=== PATIENT | male | born 1990 | race Two or more races ===

== ENCOUNTER 2018-12-22 | Inpatient (IN) | payer OTHER ==
[~2018-12-22] VITALS: Ht 152.4 cm; Wt 149.2 kg
[2018-12-23] VITALS (26 sets, daily range): BP systolic 90–135; BP diastolic 40–81
--- NOTE | 2018-12-23 05:30 | NUR ---
TELE MS RD SCIENTIST INITIAL NOTES GOT A DIRECT ADMIT FROM [facility] .DX OF RENAL FAILURE. PT IS ALERT ORIENTED , AMBULATORY, PLEASANT AND ABLE TO PROVIDE INFORMATION ABOUT HIMSELF.DENIES ANY PAIN OR ANY DISCOMFORT. NO SOB NOTED. SKIN WARM AND DRY TO TOUCH. ORIENTED HOW TO USED THE CALL LIGHT SYSTEM. TELE MONITOR APPLIED AND EXPLAINED THE PATIENT THE PURPOSE OF IT AND PT UNDERSTOOD WELL. PLACE CALL LIGHT AT REACH. WILL ENDORSE TO AM NURSE FOR CONTINUITY OF CARE.
[2018-12-23] MEDS ORDERED: MAG HYDROX/AL HYDROX/SIMETH 30 ML UDC PO PRN (06:30)
[2018-12-23] MEDS ORDERED: HYDROCODONE/APAP 5/325MG 1 EACH TABLET PO PRN (06:30)
[2018-12-23] MEDS ORDERED: MAGNESIUM HYDROXIDE 30 ML UDC PO PRN (06:30)
[2018-12-23] MEDS ORDERED: ACETAMINOPHEN 325 MG TABLET PO PRN (06:30)
[2018-12-23] MEDS ORDERED: ONDANSETRON HCL/PF 4 MG/2 ML VIAL IVP PRN (06:30)
[2018-12-23] MEDS ORDERED: Z GUARD REMEDY 2 OZ OINT TP PRN (06:30)
[2018-12-23] MEDS ORDERED: BUDE10.2 INH (06:39)
[2018-12-23] MEDS ORDERED: METF-442 PO (06:47)
[2018-12-23] MEDS ORDERED: CARV3.122 PO (06:47)
[2018-12-23] MEDS ORDERED: ALBU0.633 IH (06:47)
[2018-12-23] MEDS ORDERED: ATOR20TA PO (06:47)
[2018-12-23] MEDS ORDERED: LOSA50TA39 PO (06:47)
[2018-12-23] MEDS ORDERED: FURO20TA4 PO (06:47)
--- NOTE | 2018-12-23 07:02 | NUR ---
CROSS TIE TURNER NOTES PATIENT IN BED ALERT ORIENTED X 3. NO ACUTE DISTRESS NOTED. BREATHING UNLABORED. NO ACUTE DISTRESS NOTED. IV ACCESS PATENT AND INTACT, NO REDNESS OR SWELLING NOTED. SAFETY MEASURES IN PLACE. CALL LIGHT WITHIN REACH. WILL CONTINUE TO MONITOR ACCORDINGLY.
[2018-12-23 08:13] LABS: BASOPHILS # (AUTO) 0.1 /CMM (0.0-0.2); BASOPHILS % (AUTO) 0.4 % (0.0-2.0); EOSINOPHILS % (AUTO) 1.5 % (0.0-6.0); HEMATOCRIT 30 % (39-51); HEMOGLOBIN 9.8 g/dL (13.5-17.5); LYMPHOCYTES # (AUTO) 1.5 /CMM (0.8-4.8); LYMPHOCYTES % (AUTO) 12.1 % (20.0-44.0); MEAN CORPUSCULAR HGB CONC 33 g/dl (31.0-36.0); MEAN CORPUSCULAR VOLUME 99 fL (80-96); MONOCYTES # (AUTO) 1.3 /CMM (0.1-1.30); MONOCYTES % (AUTO) 10.2 % (2.0-12.0); NEUTROPHILS # (AUTO) 9.7 /CMM (1.8-8.9); NEUTROPHILS % (AUTO) 75.8 % (43.0-81.0); PLATELET COUNT (AUTO) 378 /CMM (150-450); RED BLOOD CELL COUNT(AUTO) 3.04 MIL/uL (4.5-6.0); WHITE BLOOD COUNT (AUTO) 12.8 K/uL (4.3-11.0)
[2018-12-23 08:27] LABS: ALBUMIN 3.2 g/dL (3.4-5.0); BILIRUBIN,TOTAL 0.2 mg/dL (0.2-1.0); CREATININE 3.7 mg/dL (0.6-1.3); MAGNESIUM 2.1 mg/dL (1.8-2.4)
[2018-12-23 08:40] LABS: POTASSIUM 7.2 mmol/L (3.5-5.1)
[2018-12-23] MEDS ORDERED: DEXTROSE 50%-WATER 50 ML DISP.SYRIN IVP ONE (09:00)
[2018-12-23] MEDS ORDERED: SODIUM POLYSTYRENE SULFONATE 15 G/60 ML BOTTLE PO ONE ×2 (09:00→19:00)
[2018-12-23] MEDS ORDERED: INSULIN REGULAR, HUMAN 100 UNIT/ML 3 ML VIAL IV ONE (09:00)
[2018-12-23 09:01] LABS: THYROID STIMULATING HORMONE 1.584 uIU/mL (0.358-3.74)
[2018-12-23] MEDS ORDERED: IV NS 0.9% 1,000 ML IV PRN (09:46)
[2018-12-23] MEDS: CARVEDILOL 3.125 MG TABLET PO SCH ×2 (10:00→16:20)
[2018-12-23] MEDS ORDERED: ALBUTEROL FS 2.5 MG/3 ML VIAL.NEB NEB PRN (10:00)
[2018-12-23 12:03] LABS: ABG BASE EXCESS -13.8 mmol/L; ABG OXYGEN SATURATION 96.3 % (92.0-98.5); ABG PCO2 32.9 mmHg (35.0-45.0); ABG PH 7.212 (7.350-7.450); ABG PO2 94.1 mmHg (75.0-100.0); AaDO2 16.2 mmHg; COHb 0.3 % (0.5-1.5); SITE, ABG Left Radial; VENT MODE, BG ROOM AIR
--- NOTE | 2018-12-23 12:45 | NUR ---
RN NOTES ABG RESULTED RELAYED TO DR ROCHE WITH ORDERS TO TRANSFER TO ICU AND REPEAT ABG AT 1600, FOLLOW WITH EXERCISE SPECIALIST DIRECTOR RISK WITH RESULT. REPORT GIVEN TO TRISTEN LINDA AT BED. TRANSFER PATIENT TO ICU ROOM 254 IN STABLE CONDITION ,ALERT ORIENTED X 4. TRANSFER VIA ACLS PROTOCOL. ALL BELONGINGS BROUGHT WITH THE PATIEN.
--- NOTE | 2018-12-23 12:45 | NUR ---
received patient from saul roman per dr roberson order. patient admitted for abnormal labs; elevated potassium 7.2 in which he was given insulin/dexrose ivp and one time dose of 30g kayexalate with out bm at this time. patient bp stable. tele snr with bbb; pending ekg. room air stable 96% without sob, difficulty breathing. patient denies pain. patient abg ph 7.212. a/ox4. piv c/d/i/p with ivf per md order. vss per report dr roberson requests abg at 1600; pending updated bmp at 1300 and no other orders at this time.
[2018-12-23] MEDS ORDERED: ALBUTEROL FS 2.5 MG/0.5 ML VIAL.NEB NEB PRN (13:30)
[2018-12-23 13:57] LABS: CREATININE 3.4 mg/dL (0.6-1.3)
--- NOTE | 2018-12-23 14:00 | NUR ---
SPOKE TO DR. ROCHE REGARDING PATIENT TRANSFER. CLARIFICATION OF ORDERS MADE REPEAT ABG AT 1600-AND CALL MD IF PH < 7.25. NOCTURNAL BIPAP WITH SETTINGS ORDERED. NO BICARB AT THIS TIME PER MD. PATIENT REMAINS AWAKE, ALERT AND AMBULATORY ON RA.
[2018-12-23 14:03] LABS: POTASSIUM 7.4 mmol/L (3.5-5.1)
--- NOTE | 2018-12-23 15:15 | NUR ---
dr persaud at bedside for consult
[2018-12-23] MEDS ORDERED: Sodium Bicarbonate 100 MEQ in IV D5/0.45 NACL 1,000 ML IV PRN (15:30)
[2018-12-23] MEDS ORDERED: FUROSEMIDE 40 MG/4 ML VIAL IV ONE (15:38)
--- NOTE | 2018-12-23 15:43 | NUR ---
ekg taken. tennille at bedside notified of ekg and dr persaud aware of ekg. aware of elevated k 7.4. per md obtain bmp for 1630. and lasix for now; called pharmacy and notified jessica
--- NOTE | 2018-12-23 15:50 | NUR ---
per dr hung ramirez ifv ns. urine sample collected
[2018-12-23] MEDS: NACL IV PRN (16:20)
[2018-12-23] MEDS: SODIUM ACETATE IV PRN (16:20)
[2018-12-23] MEDS: D5 IV PRN (16:20)
[2018-12-23 16:32] LABS: ABG BASE EXCESS -14.8 mmol/L; ABG OXYGEN SATURATION 96.5 % (92.0-98.5); ABG PCO2 28.7 mmHg (35.0-45.0); ABG PH 7.221 (7.350-7.450); ABG PO2 98.2 mmHg (75.0-100.0); AaDO2 17.2 mmHg; COHb 0.3 % (0.5-1.5); MetHb 0.6 % (0.0-1.5); O2Hb 95.6 % (94.0-97.0); SITE, ABG Right Radial; VENT MODE, BG ROOM AIR
--- NOTE | 2018-12-23 16:53 | NUR ---
PER DR ROCHE ORDER. PATIENT ABG PH 7.221. MESSAGE LEFT TO DR LEOS SCAGLIOLA MECHANIC.
[2018-12-23] MEDS ORDERED: Budesonide/Formoterol Fumarate (Symbicort 160-4.5 Mcg In INH SCH (17:00)
--- NOTE | 2018-12-23 17:25 | NUR ---
SPOKE WITH DR LEOS NOTIFIED OF UPDATED ABG AND CURRENT MEDICATIONS ORDERED. PER ABG 12/24 AM 0800
[2018-12-23 17:50] LABS: APPEARANCE,URINE CLEAR (CLEAR); BILIRUBIN,URINE NEGATIVE (NEGATIVE); BLOOD, URINE NEGATIVE Ery/uL (NEGATIVE); KETONES,URINE NEGATIVE (NEGATIVE); LEUKOCYTE ESTERASE ,URINE NEGATIVE (NEGATIVE); NITRITE, URINE NEGATIVE (NEGATIVE); PH,URINE 5.5 (5.0-8.0); PROTEIN,URINE NEGATIVE (NEGATIVE); UGLUCOSE NEGATIVE (NEGATIVE); UROBILINOGEN,URINE 0.2 EU/dL (0.2)
[2018-12-23 18:06] LABS: CALCIUM, SERUM 8.8 mg/dL (8.5-10.1); CREATININE 3.4 mg/dL (0.6-1.3)
[2018-12-23 18:06] LABS: CREATININE, URINE 66.1 MG/DL (30.0-125.0); URINE TOTAL PROTEIN 32.7 mg/dL (0-11.9)
--- NOTE | 2018-12-23 18:12 | NUR ---
STOOL SAMPLE COLLECTED
[2018-12-23 18:14] LABS: POTASSIUM 6.6 mmol/L (3.5-5.1)
--- NOTE | 2018-12-23 18:20 | NUR ---
NOTIFIED MAITE AND DR MENDOZA ON IMPROVED POTASSIUM LEVEL. PER LEIGHTON PLEASE GIVE ONE TIME DOSE OF KAYEXALATE 30G AND BMP IN AM (ALREADY ORDERED BY DR MENDOZA)
[2018-12-23 18:21] LABS: COLOR,URINE Light yellow (YELLOW)
--- NOTE | 2018-12-23 18:30 | NUR ---
PATIENT NOTED TO HAVE PUS COMING OUT OF A SMALL PIN PRICK WOUND ON BACK OF NECK. CLEANSED WITH NS PAINTED WITH BETADINE AND COVERED WITH STERILE DRESSING. NOTIFIED LEIGHTON Addendum: 12/23/18 at 1902 by TRISTEN STERLING RN LARGE FIRM AREA SURROUNDING SITE. PATIENT NOTED PAINFUIL
[2018-12-23 18:52] LABS: EOSINOPHIL,URINE None Seen
--- NOTE | 2018-12-23 19:02 | NUR ---
LEIGHTON AT BEDSIDE. PER LEIGHTON PLEASE ORDER CT HEAD WO. WOUND CULTURE. ACCUCHECKS ACHS MILD SLIDING SCALE. VANCO 1GM IV NOW AND THEN PHARMACY TO DOSE AND WOUND CONSULT
[2018-12-23] MEDS ORDERED: DEXTROSE 50%-WATER 50 ML DISP.SYRIN IV PRN (19:30)
--- NOTE | 2018-12-23 19:30 | NUR ---
ICU/CHANNELER OUTSOLE RECEIVED REPORT FROM DAY NURSE. SEE FLOWSHEET FOR ASSESSMENT, ALONG WITH ANY AND ALL SKIN ISSUES WHICH ARE ADDRESSED ALONG WITH THE EACH OF THE INTERVENTIONS TO THESE. PT IS CURRENTLY ALERTX4 AND ON ROOM AIR, TOLERATING THIS WELL. PT IS ON IVF WHICH ARE ADDRESSED ON THE IV SPREAD SHEET.PT TURNS AND REPOSITIONS SELF FOR COMFORT AND CARE. WILL CONTINUE TO MONITOR THIS PT CLOSELY.
--- NOTE | 2018-12-23 19:30 | NUR ---
LAWYER REAL ESTATE NOTES RECEIVED PATIENT,AWAKE,ALERT,CONVERSES,COHERENT AND APPROPRIATE,AMBULATORY,NOT IN NAY DISTRESS,DENIES ANY PAIN. + EDEMA OF LOWER EXTREMITIES.NOTED A BIG INDURATION OF SCALP, WITH ERYTHEMA AND DRAINING PURULENT DISCHARGE AT LOWER PART OF POSTERIOR SCALP NEAR NAPE AREA.PATIENT DENIES ANY PAIN AT SITE.PENDING CT OF HEAD R/O SCALP ABSCESS.
--- NOTE | 2018-12-23 19:57 | NUR ---
ICU/MANUAL TESTER REPORT GIVEN TO NIGHT RN.
[2018-12-23] MEDS ORDERED: FEE PK DOSING 1 MIN EA MC ONE (20:05)
[2018-12-23] MEDS ORDERED: VANCOMYCIN 1 GM in IV D5W 250 ML IV ONE (21:00)
[2018-12-23] MEDS: VANCOMYCIN 1.5 GM in IV D5W 500 ML IV SCH (21:09)
--- NOTE | 2018-12-23 21:45 | NUR ---
CALLED CT DEPT TO FOLLOW UP ON CT OF HEAD, STATES THEY'RE NOT READY FOR PATIENT NOW, THEY WILL CALL UNIT WHEN THEY CAN TAKE PATIENT.
[2018-12-23] MEDS: BLOOD SUGAR DIAGNOSTIC 1 EACH STRIP IN SCH (22:38)
--- NOTE | 2018-12-23 23:00 | NUR ---
PLACED IN BIPAP ,TOLERATING WELL.
--- NOTE | 2018-12-23 23:00 | NUR ---
PT PLACED ON BIPAP 20/5, R 12, 28% PER MD'S ORDER. NO RESPIRATORY DISTRESS NOTED AT THIS TIME . PT TOLERATING SETTINGS. ALARMS SET AND AUDIBLE. AMBU BAG AT BEDSIDE, WILL CONTINUE TO MONITOR THE PT.
[2018-12-24] VITALS (32 sets, daily range): BP systolic 92–140; BP diastolic 38–81
--- NOTE | 2018-12-24 02:00 | NUR ---
ASLEEP ,REMAINS STABLE,NOT IN ANY DISTRESS.
[2018-12-24] MEDS: SODIUM ACETATE IV PRN ×2 (02:53→11:16)
[2018-12-24] MEDS: D5 IV PRN ×2 (02:53→11:16)
[2018-12-24] MEDS: NACL IV PRN ×2 (02:53→11:16)
[2018-12-24 03:59] LABS: BASOPHILS # (AUTO) 0.1 /CMM (0.0-0.2); BASOPHILS % (AUTO) 0.8 % (0.0-2.0); EOSINOPHILS % (AUTO) 2.2 % (0.0-6.0); HEMATOCRIT 27 % (39-51); LYMPHOCYTES # (AUTO) 2.3 /CMM (0.8-4.8); LYMPHOCYTES % (AUTO) 18.2 % (20.0-44.0); MEAN CORPUSCULAR HGB CONC 33 g/dl (31.0-36.0); MEAN CORPUSCULAR VOLUME 97 fL (80-96); MONOCYTES # (AUTO) 1.3 /CMM (0.1-1.30); MONOCYTES % (AUTO) 10.4 % (2.0-12.0); NEUTROPHILS # (AUTO) 8.8 /CMM (1.8-8.9); NEUTROPHILS % (AUTO) 68.4 % (43.0-81.0); PLATELET COUNT (AUTO) 371 /CMM (150-450); RED BLOOD CELL COUNT(AUTO) 2.81 MIL/uL (4.5-6.0); WHITE BLOOD COUNT (AUTO) 12.8 K/uL (4.3-11.0)
--- NOTE | 2018-12-24 04:00 | NUR ---
REMAINS STABLE,TOLERATING BIPAP. FOLLOWED UP WITH RADIOLOGY ABOUT THE CT HEAD,THEY'LL TAKE THE PATIENT @ 0800.
[2018-12-24 04:17] LABS: ALBUMIN 2.9 g/dL (3.4-5.0); BILIRUBIN,TOTAL 0.1 mg/dL (0.2-1.0); CALCIUM, SERUM 8.4 mg/dL (8.5-10.1); CREATININE 3.4 mg/dL (0.6-1.3); MAGNESIUM 1.7 mg/dL (1.8-2.4); PHOSPHORUS 5.5 mg/dL (2.5-4.9); TOTAL PROTEIN, SERUM 7.3 g/dL (6.4-8.2)
[2018-12-24 04:46] LABS: OCCULT BLOOD STOOL NEGATIVE (NEGATIVE)
--- NOTE | 2018-12-24 07:00 | NUR ---
REMAINS STABLE.ENDORSED TO LEANNE LINDA
[2018-12-24] MEDS: BLOOD SUGAR DIAGNOSTIC 1 EACH STRIP IN SCH ×4 (07:31→21:14)
[2018-12-24] MEDS: CARVEDILOL 3.125 MG TABLET PO SCH ×2 (08:11→16:24)
--- NOTE | 2018-12-24 08:23 | NUR ---
received pt from shiftman, a/o x4, SR, RA, lungs clear, BLLE edema, tolerates diet, BRP, v/s stable, no pain, pt turns and repositions by himself.
--- NOTE | 2018-12-24 08:39 | NUR ---
WOUND CARE CONSULT WOUND CARE RECEIVED CONSULT FOR POSTERIOR SCALP ABSCESS. WOUND CARE WILL DEFER TO PRIMARY TEAM AT THIS TIME. DISCUSSED WITH KNAPSACK SPRAYER. PATIENT WITH GWEN AT 23, WILL SEE PRN.
[2018-12-24] MEDS ORDERED: FUROSEMIDE 40 MG/4 ML VIAL IV ONE (09:00)
[2018-12-24 09:58] LABS: ABG BASE EXCESS -9.1 mmol/L; ABG OXYGEN SATURATION 96.7 % (92.0-98.5); ABG PCO2 31.8 mmHg (35.0-45.0); ABG PH 7.319 (7.350-7.450); AaDO2 16.7 mmHg; COHb 0.3 % (0.5-1.5); MetHb 0.6 % (0.0-1.5); O2Hb 95.8 % (94.0-97.0); SITE, ABG Left Radial; VENT MODE, BG ROOM AIR
[2018-12-24] MEDS ORDERED: LIDOCAINE 1%-EPI 1:100,000 20 ML VIAL TP ONE (10:30)
--- NOTE | 2018-12-24 11:58 | NUR ---
seen by Dr Gonzalez, general surgery, no interventions recommended.
[2018-12-24] MEDS: FLUTICASONE/VILANTEROL 1 EACH BLST.W.DEV IH SCH (12:57)
[2018-12-24 15:54] LABS: CALCIUM, SERUM 8.8 mg/dL (8.5-10.1); CREATININE 2.9 mg/dL (0.6-1.3); POTASSIUM 5.6 mmol/L (3.5-5.1)
--- NOTE | 2018-12-24 16:20 | NUR ---
pt is resting in the bed, a/o x4, SR, RA, CT head done, tolerates diet, good urine output, v/s stable, no pain, family at the bedside.
[2018-12-24] MEDS: LACTOBACILLUS RHAMNOSUS GG 1 EACH CAP.SPRINK PO SCH (16:23)
[2018-12-24] MEDS: CITRIC ACID/SODIUM CITRATE (BICITRA)15 ML UDC PO SCH ×2 (16:43→20:46)
--- NOTE | 2018-12-24 18:40 | NUR ---
pt transferred to med/surg, v/s stable, no pain.
--- NOTE | 2018-12-24 18:45 | NUR ---
MS mold closer helper Note Received patient from ICU via wheelchair, accompanied with staff and family member. Transferred safely to bed. Personal belongings inventoried. Medications received from ICU. Vital signs stable, not acute distress. Patient alert and oriented x4, able to make needs known. No acute distress. Will endorse to plant operator/shift supervisor RN for continuity of care.
--- NOTE | 2018-12-24 19:44 | NUR ---
MS LINDA OPENING NOTES: RECEIVED PT ON ROOM AIR AND TOLERATING WELL. GIRLFRIEND AT BEDSIDE AT THIS TIME. PT A/OX4. NO SOB NOTED. NO S/S OF DISTRESS. IV ON R FOREARM #20G REMAINS INTACT. CURRENTLY H/L. BED KEPT IN LOW, LOCKED POSITION, AND SIDE RAILS X 2UP. WILL CONTINUE TO MONITOR PT. Addendum: 12/24/18 at 2021 by DENZEL NORWOOD RN NOTED DRESSING ON POSTERIOR NECK AND IS CLEAN AND DRY.
[2018-12-24] MEDS: ATORVASTATIN 10 MG TABLET PO SCH (21:13)
--- NOTE | 2018-12-25 00:34 | NUR ---
MS LINDA NOTES: PT READY TO GO FOR BED. PT REQUESTING TO GO ON CPAP MACHINE. NOTIFIED RT. WILL CONTINUE TO MONITOR. Addendum: 12/25/18 at 0540 by DENZEL NORWOOD RN BIPAP
--- NOTE | 2018-12-25 00:58 | NUR ---
RN NOTES: PT PLACED ON PULSE OX WELL WHILE ON CPAP.
--- NOTE | 2018-12-25 05:40 | NUR ---
MS RN NOTES: PT REQUESTING TO BE REMOVED OFF MACHINE. NOTIFIED RT.
[2018-12-25] MEDS: BLOOD SUGAR DIAGNOSTIC 1 EACH STRIP IN SCH ×4 (06:35→21:11)
[2018-12-25] MEDS: INSULIN REGULAR, HUMAN 100 UNIT/ML 3 ML VIAL SQ PRN ×2 (06:39→21:12)
--- NOTE | 2018-12-25 06:45 | NUR ---
MS RN CLOSING NOTES: ALL NEEDS WERE ATTENDED AND ANTICIPATED FOR. PT ON ROOM AIR AND TOLERATING WELL. NO SOB NOTED. NO S/S OF DISTRESS. IV REMAINS INTACT. CURRENTLY H/L. PT SITTING UP ON BED AND IS ON PHONE AT THIS TIME. BED KEPT IN LOW, LOCKED POSITION, AND SIDE RAILS X 2UP. WILL ENDORSE TO AM NURSE FOR SHAYNA. Addendum: 12/25/18 at 0711 by DENZEL NORWOOD RN ENDORSED TO AM NURSE FOR SHAYNA.
[2018-12-25 06:48] LABS: BASOPHILS # (AUTO) 0.1 /CMM (0.0-0.2); EOSINOPHILS % (AUTO) 3.1 % (0.0-6.0); HEMATOCRIT 28 % (39-51); HEMOGLOBIN 9.2 g/dL (13.5-17.5); LYMPHOCYTES # (AUTO) 2.3 /CMM (0.8-4.8); LYMPHOCYTES % (AUTO) 23.1 % (20.0-44.0); MEAN CORPUSCULAR HGB CONC 33 g/dl (31.0-36.0); MEAN CORPUSCULAR VOLUME 97 fL (80-96); MONOCYTES % (AUTO) 10.3 % (2.0-12.0); NEUTROPHILS # (AUTO) 6.2 /CMM (1.8-8.9); NEUTROPHILS % (AUTO) 62.5 % (43.0-81.0); PLATELET COUNT (AUTO) 388 /CMM (150-450); RED BLOOD CELL COUNT(AUTO) 2.84 MIL/uL (4.5-6.0); WHITE BLOOD COUNT (AUTO) 9.9 K/uL (4.3-11.0)
[2018-12-25 07:24] LABS: ALBUMIN 3.1 g/dL (3.4-5.0); BILIRUBIN,TOTAL 0.2 mg/dL (0.2-1.0); CREATININE 2.8 mg/dL (0.6-1.3); MAGNESIUM 1.8 mg/dL (1.8-2.4); PHOSPHORUS 5.2 mg/dL (2.5-4.9); POTASSIUM 5.2 mmol/L (3.5-5.1); TOTAL PROTEIN, SERUM 7.6 g/dL (6.4-8.2)
--- NOTE | 2018-12-25 07:40 | NUR ---
MS RN NOTES PATIENT RECEIVED RESTING INSIDE ROOM. AWAKE, ALERT AND ORIENTED X4, VERBALLY RESPONSIVE AND RESPONDS TO VERBAL AND TACTILE STIMULI. BREATHING EVEN AND UNLABORED. NO ACUTE DISTRESS AT THIS TIME. DENIES ANY PAIN OR DISCOMFORT. NO CHANGES IN LOC NOTED. PATIENT CALM AND RELAXED. IV INTACT AND PATENT. WILL CONTINUE TO MONITOR. BED LOCKED AND IN LOW POSITION. BILATERAL UPPER SIDE RAILS UP AND LOCKED. CPAP MACHINE AT BEDSIDE. CALL LIGHT WITHIN EASY REACH
[2018-12-25 08:00] VITALS: BP 101/61
[2018-12-25] MEDS ORDERED: HOME MED MISCELLANEOUS INH SCH (09:00)
[2018-12-25] MEDS ORDERED: SODIUM POLYSTYRENE SULF. PWD 15 GM UDC PO ONE (09:00)
[2018-12-25] MEDS: CARVEDILOL 3.125 MG TABLET PO SCH ×2 (09:00→16:48)
[2018-12-25] MEDS: LACTOBACILLUS RHAMNOSUS GG 1 EACH CAP.SPRINK PO SCH ×2 (09:23→16:48)
[2018-12-25] MEDS: FLUTICASONE/VILANTEROL 1 EACH BLST.W.DEV IH SCH (09:25)
[2018-12-25] MEDS: CITRIC ACID/SODIUM CITRATE (BICITRA)15 ML UDC PO SCH ×4 (09:26→21:07)
[2018-12-25] MEDS: VANCOMYCIN 1.5 GM in IV D5W 500 ML IV SCH (09:49)
[2018-12-25 12:11] LABS: PTH, INTACT 52 pg/mL (15-65)
--- NOTE | 2018-12-25 18:33 | NUR ---
MS RN NOTES PATIENT RESTING INSIDE ROOM. AWAKE, ALERT AND ORIENTED X4, VERBALLY RESPONSIVE AND RESPONDS TO VERBAL AND TACTILE STIMULI. BREATHING EVEN AND UNLABORED. NO CHANGES IN LOC NOTED AT THIS TIME. PATIENT CALM AND RELAXED. PATIENT KEPT CLEAN, DRY AND COMFORTABLE. BiPAP MACHINE AT BEDSIDE. WILL ENDORSE TO INCOMING SHIFT FOR SHAYNA. BED LOCKED AND IN LOW POSITION. BILATERAL UPPER SIDE RAILS UP AND LOCKED. CALL LIGHT WITHIN EASY REACH
[2018-12-25 20:00] VITALS: BP 104/53
--- NOTE | 2018-12-25 20:16 | NUR ---
MS RN INITIAL NOTES Patient is awake, up siting in the chair. Stable oxygen saturation on RA, denies SOB. Appears comfortable, no c/o pain. Call light within reach, safety measure explained, verbalized understanding. Will cont to monitor.
[2018-12-25 20:48] VITALS: BP 104/53
[2018-12-25] MEDS: ATORVASTATIN 10 MG TABLET PO SCH (21:07)
--- NOTE | 2018-12-26 06:22 | NUR ---
CHANGE OF SHIFT REPORT Patient in bed, slept well, approximately 6 hours. CPAP/BIPAP at night, compliant with use, denies SOB. Posterior head/occipital head lesion/abscess appears dry and no drainage, denies pain, per Dr. Gonzalez no further surgical recommendation, see notes. On IV antibiotic as scheduled, afebrile. Ambulates independently, patient reports no BM this shift. Maintained safety.
--- NOTE | 2018-12-26 07:11 | NUR ---
BM Patient reports BM this morning, formed and brown.
[2018-12-26 07:43] LABS: CREATININE 2.6 mg/dL (0.6-1.3); POTASSIUM 4.9 mmol/L (3.5-5.1)
--- NOTE | 2018-12-26 07:44 | NUR ---
MS RN NOTES PATIENT RECEIVED RESTING INSIDE ROOM. AWAKE, ALERT AND ORIENTED, VERBALLY RESPONSIVE AND RESPONDS TO VERBAL AND TACTILE STIMULI. BREATHING EVEN AND UNLABORED. NO CHANGES IN LOC NOTED AT THIS TIME. PATIENT CALM AND RELAXED. DENIES ANY PAIN OR DISCOMFORT. WILL CONTINUE TO MONITOR. BED LOCKED AND IN LOW POSITION. BILATERAL UPPER SIDE RAILS UP AND LOCKED. CALL LIGHT WITHIN EASY REACH
[2018-12-26 08:00] VITALS: BP 101/64
[2018-12-26] MEDS: BLOOD SUGAR DIAGNOSTIC 1 EACH STRIP IN SCH (08:44)
[2018-12-26] MEDS: FLUTICASONE/VILANTEROL 1 EACH BLST.W.DEV IH SCH (08:45)
[2018-12-26] MEDS: LACTOBACILLUS RHAMNOSUS GG 1 EACH CAP.SPRINK PO SCH (08:46)
[2018-12-26] MEDS: CITRIC ACID/SODIUM CITRATE (BICITRA)15 ML UDC PO SCH (08:46)
[2018-12-26 08:47] VITALS: BP 101/64
[2018-12-26] MEDS: CARVEDILOL 3.125 MG TABLET PO SCH (08:47)
--- NOTE | 2018-12-26 10:57 | NUR ---
MS RN NOTES PATIENT WITH DISCHARGE ORDER FROM DR. NOLASCO. PATIENT OK TO DISCHARGE HOME. PATIENT MADE AWARE AND VERBALIZED UNDERSTANDING. DISCHARGE EDUCATION AND INSTRUCTIONS GIVEN AND PATIENT VERBALIZED UNDERSTANDING. WRITTEN PRESCRIPTION GIVEN TO PATIENT. IV REMOVED WITH MINIMAL BLEEDING NOTED ON SITE. BELONGINGS COMPLETE, NO REPORT OF MISSING INVENTORY. PATIENT LEFT UNIT AT 1055 AMBULATORY IN STABLE CONDITION. BREATHING EVEN AND UNLABORED. DENIES ANY PAIN OR DISCOMFORT. NO ACUTE DISTRESS. ACCOMPANIED BY NURSING STAFF TO PARKING LOT, LEFT HOSPITAL PREMISES VIA PRIVATE CAR WITH [facility]HA (SIGNIFICANT OTHER). MD AWARE OF DISCHARGE
[2018-12-27 08:06] LABS: *SPE A/G RATIO 0.8 (0.7-1.7); *SPE ALPHA-1-GLOBULIN 0.3 g/dL (0.0-0.4); *SPE GLOBULIN, TOTAL 3.6 g/dL (2.2-3.9); *SPE M-SPIKE Not Observed g/dL (Not Observed); *SPEGAMMA GLOBULIN 1.4 g/dL (0.4-1.8)
== END 2018-12-26 10:50 | disposition home or self-care (01) | DRG 469 ==
LOC: TELE 12-23 05:20 → MED 12-23 08:46 → ICU 12-23 12:31 → MED 12-24 18:27
PROVIDERS: ADMIT Nurse Practitioner Acute Care; ATTEND Internal Medicine
PROC: 5A09357 Assistance with Respiratory Ventilation, Less than 24 Consecutive Hours, Continuous Positive Airway Pressure (ICD-10-PCS; principal; 2018-12-23)
DX: N17.0 Acute kidney failure with tubular necrosis (principal); E43 Unspecified severe protein-calorie malnutrition; E11.22 Type 2 diabetes mellitus with diabetic chronic kidney disease; I42.8 Other cardiomyopathies; E88.09 Other disorders of plasma-protein metabolism, not elsewhere classified; E66.2 Morbid (severe) obesity with alveolar hypoventilation; E87.2 Acidosis; E87.5 Hyperkalemia; E78.5 Hyperlipidemia, unspecified; D72.829 Elevated white blood cell count, unspecified; D63.1 Anemia in chronic kidney disease; J45.909 Unspecified asthma, uncomplicated; Z68.44 Body mass index [BMI] 60.0-69.9, adult; Z71.3 Dietary counseling and surveillance; I50.9 Heart failure, unspecified; I13.0 Hypertensive heart and chronic kidney disease with heart failure and stage 1 through stage 4 chronic kidney disease, or unspecified chronic kidney disease; N18.9 Chronic kidney disease, unspecified; D53.9 Nutritional anemia, unspecified; Z79.84 Long term (current) use of oral hypoglycemic drugs; L83 Acanthosis nigricans; L02.11 Cutaneous abscess of neck
CPT/HCPCS: 36415; 36600; 70450-TC; 71045-TC; 76770-TC; 80048-TC; 80053-TC; 80061-TC; 80305; 81000-TC; 82272-TC; 82436-TC; 82550-TC; 82570-TC; 82728-TC; 82803-TC; 82962-TC; 83540-TC; 83735-TC; 83935-TC; 83970; 84100-TC; 84133-TC; 84155; 84155-TC; 84165; 84300-TC; 84443-TC; 85025-TC; 87070-TC; 93307-TC; 94660; 94760-TC; A6402; G0378; J1815; J1940; J3370; J3490; J7030; J7060